=== PATIENT | male | born 1990 | race Two or more races ===

== ENCOUNTER 2019-01-22 18:29 | Emergency (ER) | payer OTHER ==
--- NOTE | 2019-01-22 19:14 | EDM.PDOC ---
ED HPI GENERAL MEDICAL PROBLEM - General Chief Complaint: Upper Extremity Injury/Pain Stated Complaint: HAND INJURY Time Seen by Provider: 01/22/19 18:54 Source of Information: Reports: Patient, RN Notes Reviewed History Limitations: Reports: No Limitations - History of Present Illness INITIAL COMMENTS - FREE TEXT/NARRATIVE: Patient is a 28-year-old male who presents to the ED for evaluation of a right hand injury. Patient states he was at work tonight, onsite at the oil [place] when he had his right hand and forearm pulled into a piece of rotational equipment and this resulted in his arm getting sort of wrapped around this rotational force. He states that he feels pain from the tips of his fingers in his right hand all the way to his elbow. He denies any pain superior to the elbow or in her shoulder. There are multiple small skin lacerations to the middle ring and pinky knuckles. He states he is not able to move his hand much at all, he notes that he has some numbness as well, and states he could not feel my touch on exam, this in a glove type fashion and terminates about [address] up his forearm. He was given 2 tablets of Advil for initial pain relief at the work site. Patient notes he is predominantly right-handed. Right Lower Arm Pain Score (Numeric/FACES): 10 - Related Data Allergies Allergy/AdvReac Type Severity Reaction Status Date / Time No Known Allergies Allergy Verified 01/22/19 18:50 Home Meds: Home Meds . [No Known Home Meds] 01/22/19 [History] Past Medical History - Past Health History Medical/Surgical History: Denies Medical/Surgical History Social & Family History - Tobacco Use Smoking Status *Q: Current Every Day Smoker Years of Tobacco use: 15 Packs/Tins Daily: 1 - Caffeine Use Caffeine Use: Reports: Coffee - Recreational Drug Use Recreational Drug Use: No Review of Systems - Review of Systems Review Of Systems: See Below Constitutional: Denies: Chills, Fever Eyes: Reports: No Symptoms Ears: Reports: No Symptoms Nose: Reports: No Symptoms Mouth/Throat: Reports: No Symptoms Respiratory: Reports: No Symptoms Cardiovascular: Reports: No Symptoms GI/Abdominal: Reports: No Symptoms Genitourinary: Reports: No Symptoms Musculoskeletal: Reports: Arm Pain (R forearm/hand), Hand Pain (R hand pain) Skin: Reports: Other (arm is visibly soiled with dark oily substance) Neurological: Reports: Numbness (R forearm, wrist, and hand) Psychiatric: Reports: No Symptoms ED EXAM, GENERAL - Physical Exam Exam: See Below Exam Limited By: No Limitations General Appearance: Alert, WD/WN, No Apparent Distress Eye Exam: Bilateral Eye: EOMI, Normal Inspection, PERRL Throat/Mouth: Normal Inspection, Normal Lips, Normal Teeth, Normal Gums, Normal Oropharynx, Normal Voice, No Airway Compromise Head: Atraumatic, Normocephalic Neck: Normal Inspection Respiratory/Chest: No Respiratory Distress, Lungs Clear, Normal Breath Sounds, No Accessory Muscle Use, Chest Non-Tender Cardiovascular: Normal Peripheral Pulses, Regular Rate, Rhythm, No Murmur Peripheral Pulses: 3+: Radial (L), Radial (R) Extremities: Normal Capillary Refill, Limited Range of Motion (of R forearm, wrist and hand. Pt cannot wiggle fingers much at all, he is not able to supinate forearm d/t pain, does not move wrist much) Neurological: Alert, Oriented, Normal Cognition, No Motor/Sensory Deficits Psychiatric: Normal Affect, Normal Mood Skin Exam: Warm, Dry, Intact, Wound/Incision (A few small lacerations to the middle, ring, and pinky knuckles of the right hand. These are at the DIP aspect of each finger. ), Other ( The hand is visibly soiled with a dark oily substance, hard to tell if color is WNL at this time. We'll have the nurse clean his arm so we can get better visualization of injuries.) Course - Vital Signs Last Recorded V/S: Last Vital Signs Temp 98.6 F 01/22/19 18:47 Pulse 77 01/22/19 18:47 Resp 18 01/22/19 18:47 BP 147/95 H 01/22/19 18:47 Pulse Ox 97 01/22/19 18:47 - Orders/Labs/Meds Orders: Active Orders 24 hr Category Date Time Status Forearm 2V Rt [CR] Stat Exams 01/22/19 19:00 Taken Hand Comp Min 3V Rt [CR] Stat Exams 01/22/19 19:00 Taken - Re-Assessments/Exams Free Text/Narrative Re-Assessment/Exam: 01/22/19 19:16 Patient resents to the ED for evaluation of a right hand injury. I did order a right hand and forearm x-rays for initial evaluation. He is not too much pain at this time, however I am worried as he is not able to move his hand much on his own, and also about his lack of sensation to the right hand and wrist. If the x-ray should note fractures, he will likely need to go to [place] for further management. 01/22/19 19:56 Patient's x-rays are done, and miraculously demonstrate no fractures or bony abnormalities in the hand or forearm studies. 01/22/19 20:25 I did call [facility] in [place], for Ortho recommendation regarding the patient' s arm injuries. Dr. Kimbrough is their hand specialist on [facility] for call. Dr. Roberts is regular orthopedist alteration tailor. Their main concern is for compartment syndrome. I will have Dr. Masters evaluate patient for possible compartment syndrome. I did not appreciate any marked swelling. 01/22/19 20:52 Dr. Masters evaluated the patient and believes there may be some sort of nerve damage that is making him lose sensation in his R hand in a glove type distribution. I did call [facility] in [place], Dr. Kimbrough suggests watchful waiting, and states that there is no surgical emergency this time. He said the patient can call his office tomorrow and schedule close follow up. He states that the patient would best benefit from keeping the arm elevated as much as possible, and try to keep it rested. He notes that injuries like this commonly spontaneously resolve by themselves, with no surgical management. He notes that this could take a week or longer to get back to normal. Departure - Departure Time of Disposition: 21:07 Disposition: Home, Self-Care 01 Condition: Fair Clinical Impression: Injury of right hand Qualifiers: Encounter type: initial encounter Qualified Code(s): S69.91XA - Unspecified injury of right wrist, hand and finger(s), initial encounter Injury of right forearm and wrist Qualifiers: Encounter type: initial encounter Qualified Code(s): S59.911A - Unspecified injury of right forearm, initial encounter - Discharge Information *PRESCRIPTION DRUG MONITORING PROGRAM REVIEWED*: No *COPY OF PRESCRIPTION DRUG MONITORING REPORT IN PATIENT SYDNI: No Instructions: Crush Injury of the Hand, [id number] Referrals: PCP,Not In Area [Primary Care Provider] - Forms: ED Department Discharge, ED Return to Work/School Form Additional Instructions: You have been evaluated in the ED for your Right hand/forearm injury. Your x-ray demonstrated no acute fracture or bony abnormality of your right hand /wrist/forearm. Please use ice as tolerated to the affected area. Please keep the arm elevated above the level of the heart as much as possible to help alleviate some of the pain. You may take Tylenol 500 mg or ibuprofen 600mg q6 hrs for pain relief. Please do so until you have a tolerable level of pain with activity. Do not exceed 4000mg tylenol, Do not exceed 3200mg ibuprofen in a 24 hour time period. Please call Ortho for follow-up and further evaluation, Dr. Kimbrough, industrial relations specialist at [facility] in [place], through the [facility] clinic was consulted on your case, he states he can call his office at [phone] tomorrow morning, and schedule a follow-up appointment with him in a day or 2. His office is located at [address] [place] [address]. He further recommended trying to rest the arm as much as possible and elevate it as much as possible. He states that the numbness you are experiencing may take a week or so to go away, but is hopeful that it will return by itself. Please return to ED if your symptoms should change or worsen. - My Orders Last 24 Hours: My Active Orders 01/22/19 19:00 Forearm 2V Rt [CR] Stat Hand Comp Min 3V Rt [CR] Stat - Assessment/Plan Last 24 Hours: My Active Orders 01/22/19 19:00 Forearm 2V Rt [CR] Stat Hand Comp Min 3V Rt [CR] Stat
--- NOTE | 2019-01-23 06:43 | CR ---
Right hand: Four views of the right hand were obtained. Comparison: No previous and exam. Joint spaces are maintained. No fracture, dislocation or other bony abnormality is seen. Impression: 1. No abnormality is appreciated on right hand exam. Diagnostic code #1 I agree with preliminary report from [facility], finalized on 01/22/19, 8:49 PM Central Time
--- NOTE | 2019-01-23 06:43 | CR ---
Right forearm: Two views of the right forearm were obtained. Comparison: No previous forearm study. No fracture or other bony abnormality is seen. Impression: 1. No abnormality is identified on right forearm study. Diagnostic code #1
== END 2019-01-22 21:27 | disposition home or self-care (01) ==
LOC: JD.ED 18:29
DX: S61.212A Laceration without foreign body of right middle finger without damage to nail, initial encounter (principal); S61.214A Laceration without foreign body of right ring finger without damage to nail, initial encounter; S61.411A Laceration without foreign body of right hand, initial encounter; S69.91XA Unspecified injury of right wrist, hand and finger(s), initial encounter; S59.911A Unspecified injury of right forearm, initial encounter; F17.210 Nicotine dependence, cigarettes, uncomplicated; W23.0XXA Caught, crushed, jammed, or pinched between moving objects, initial encounter; Y92.89 Other specified places as the place of occurrence of the external cause; Y99.0 Civilian activity done for income or pay
CPT/HCPCS: 73090-26-RT; 73090-RT; 73130-26-RT; 73130-RT; 99283-25

== ENCOUNTER 2021-12-06 13:05 | Emergency (ER) | payer OTHER ==
[2021-12-06] MEDS ORDERED: Ketorolac 60 MG/2 ML SDV IM ONE (17:12)
== END 2021-12-06 19:25 | disposition home or self-care (01) ==
LOC: JD.ED 13:05
DX: M79.2 Neuralgia and neuritis, unspecified (principal); Z86.16 Personal history of COVID-19
CPT/HCPCS: 70450; 96372; 99283; J1885

== ENCOUNTER 2022-03-19 21:02 | Emergency (ER) | payer OTHER ==
[2022-03-19 23:25] LABS: ESTIMATED GFR 91 mL/min (>60)
[2022-03-20] MEDS ORDERED: Iopamidol 612 MG/ML 100 ML Bottle IVPUSH ONE (00:22)
[2022-03-20] MEDS ORDERED: Doxycycline Monohydrate 100 MG Cap PO ONE (01:06)
[2022-03-20] MEDS ORDERED: Ketorolac 30 MG/ML SDV IVPUSH ONE (01:07)
== END 2022-03-20 01:30 | disposition home or self-care (01) ==
LOC: JD.ED 21:02
DX: R10.32 Left lower quadrant pain (principal); Z86.16 Personal history of COVID-19
CPT/HCPCS: 36415; 74177; 80053; 81003; 85025; 96374; 99284; A9270; J1885; Q9967

== ENCOUNTER 2022-04-12 23:35 | Emergency (ER) | payer OTHER ==
[2022-04-13] MEDS ORDERED: HYDROmorphone 1 MG/ML Syringe IVPUSH ONE (00:08)
[2022-04-13] MEDS ORDERED: Ondansetron 4 MG/2 ML SDV IVPUSH ONE (00:08)
[2022-04-13] MEDS ORDERED: Sodium Chloride 0.9% 1,000 ML IV SCH (00:15)
[2022-04-13] MEDS ORDERED: Sodium Chloride 0.9% 10 ML Syringe FLUSH ONE (00:43)
[2022-04-13] MEDS ORDERED: Iopamidol 612 MG/ML 100 ML Bottle IVPUSH ONE (00:43)
== END 2022-04-13 01:25 | disposition home or self-care (01) ==
LOC: JD.ED 23:35
DX: R10.32 Left lower quadrant pain (principal); Z87.891 Personal history of nicotine dependence
CPT/HCPCS: 36415; 74177; 80053; 85007; 85027; 96361; 96374; 96375; 99284; J1170; J2405; J3490; J7030; Q9967

== ENCOUNTER 2022-04-22 10:09 | Day surgery (SDC) | payer OTHER ==
[~2022-04-22 10:09] MED LIST: Lactated Ringers 1,000 ML IV SCH; Lidocaine 1% 6 ML ONE; Lidocaine 1%/Sod Bicarbonate in NS 8.4% 1 ML Syringe IDERM PRN; Propofol 200 MG/20 ML SDV ONE; Sodium Chloride 0.9% 10 ML Syringe FLUSH PRN; Sodium Chloride 0.9% 10 ML Syringe FLUSH SCH
[2022-04-22] MEDS ORDERED: fentaNYL 100 MCG/2 ML SDV ONE (10:10)
[2022-04-22] MEDS ORDERED: Rocuronium 50 MG/5 ML Vial ONE (10:10)
[2022-04-22] MEDS ORDERED: Ondansetron 4 MG/2 ML SDV ONE (10:10)
[2022-04-22] MEDS ORDERED: Lidocaine 1% 30 ML SDV ONE (10:24)
[2022-04-22] MEDS ORDERED: Bupivacaine 0.5%/EPINEPHrine 1:200,000 50 ML MDV ONE (10:24)
[2022-04-22] MEDS ORDERED: Acetaminophen 325 MG Tab PO SCH (10:30)
[2022-04-22] MEDS ORDERED: Gabapentin 300 MG Cap PO SCH (10:30)
[2022-04-22] MEDS ORDERED: ceFAZolin 2 GM Vial ONE (12:01)
[2022-04-22] MEDS ORDERED: Ketorolac 15 MG/ML SDV ONE (12:56)
[2022-04-22] MEDS ORDERED: fentaNYL 100 MCG/2 ML SDV IVPUSH PRN (13:40)
[2022-04-22] MEDS ORDERED: Ondansetron 4 MG/2 ML SDV IVPUSH PRN (13:40)
[2022-04-22] MEDS ORDERED: Acetaminophen/oxyCODONE 325-5 MG Tab PO ONE (13:46)
== END 2022-04-22 14:51 | disposition home or self-care (01) ==
LOC: JD.SDS 10:09
PROVIDERS: ATTEND Surgery
DX: K40.90 Unilateral inguinal hernia, without obstruction or gangrene, not specified as recurrent (principal); D17.6 Benign lipomatous neoplasm of spermatic cord; M54.9 Dorsalgia, unspecified; G89.29 Other chronic pain; Z79.899 Other long term (current) drug therapy; Z98.890 Other specified postprocedural states; Z86.16 Personal history of COVID-19; Z87.891 Personal history of nicotine dependence
CPT/HCPCS: 49650; 87641; A9270; C1727; C1781; J0690; J1885; J2405; J2704; J3010; J3490; J7120

== ENCOUNTER 2022-05-29 21:07 | Emergency (ER) | payer OTHER ==
[2022-05-29] MEDS ORDERED: HYDROmorphone 0.5 MG/0.5 ML Syringe IVPUSH ONE (22:05)
[2022-05-29] MEDS ORDERED: Sodium Chloride 0.9% 10 ML Syringe FLUSH PRN (22:05)
[2022-05-29] MEDS ORDERED: Sodium Chloride 0.9% 10 ML Syringe FLUSH ONE (22:08)
[2022-05-29] MEDS ORDERED: Iopamidol 612 MG/ML 100 ML Bottle IVPUSH ONE (22:08)
[2022-05-29 22:50] LABS: ESTIMATED GFR 91 mL/min (>60)
[2022-05-29] MEDS ORDERED: Polyethylene Glycol 3350 Powder 17 GM Packet PO ONE (23:06)
== END 2022-05-29 23:15 | disposition home or self-care (01) ==
LOC: JD.ED 21:07
DX: K59.00 Constipation, unspecified (principal); Z86.16 Personal history of COVID-19
CPT/HCPCS: 36415; 74177; 80053; 85025; 86140; 96374; 99284; J1170; J3490; Q9967; 99283

== ENCOUNTER 2022-08-03 20:48 | Emergency (ER) | payer OTHER ==
[2022-08-03] MEDS ORDERED: Sodium Chloride 0.9% 10 ML Syringe FLUSH PRN (21:51)
[2022-08-03] MEDS ORDERED: Alum Hydrox/Mag Hydrox/Simeth 30 ML, Lidocaine 2% 15 ML PO ONE ×2 (21:51)
[2022-08-03 22:35] LABS: ESTIMATED GFR 116 mL/min (>60)
[2022-08-03] MEDS ORDERED: Sucralfate Suspension 1 GM/10 ML Cup PO ONE (22:40)
[2022-08-04] MEDS ORDERED: Famotidine 20 MG/2 ML SDV IVPUSH STA (00:26)
[2022-08-04] MEDS ORDERED: Famotidine 20 MG Tab PO STA (00:27)
== END 2022-08-04 00:50 | disposition home or self-care (01) ==
LOC: JD.ED 20:48
DX: K21.9 Gastro-esophageal reflux disease without esophagitis (principal); Z86.16 Personal history of COVID-19
CPT/HCPCS: 36415; 76705; 80053; 85025; 86140; 99284; A9270

== ENCOUNTER 2022-08-14 11:35 | Emergency (ER) | payer OTHER ==
[2022-08-14] MEDS ORDERED: Sodium Chloride 0.9% 1,000 ML IV ONE (12:06)
[2022-08-14] MEDS ORDERED: Meclizine 25 MG Tab PO ONE (12:06)
[2022-08-14] MEDS ORDERED: Ketorolac 30 MG/ML SDV IVPUSH ONE (12:06)
[2022-08-14] MEDS ORDERED: Sodium Chloride 0.9% 10 ML Syringe FLUSH PRN (12:06)
[2022-08-14 12:44] LABS: BASOPHILS ABSOLUTE AUTO 0.05 K/mm3 (0.01-0.08); BASOPHILS PERCENT AUTO 0.7 % (0.1-1.2); EOSINOPHILS ABSOLUTE AUTO 0.34 K/mm3 (0.04-0.54); EOSINOPHILS PERCENT AUTO 4.5 (0.8-7.0); HEMATOCRIT 42.5 % (40.1-51.0); HEMOGLOBIN 14.4 gm/dl (13.7-17.5); LYMPHOCYTES ABSOLUTE AUTO 2.95 K/mm3 (1.32-3.57); LYMPHOCYTES PERCENT AUTO 39.4 % (21.8-53.1); MEAN CORPUSCULAR HEMOGLOBIN 30.6 pg (25.7-32.2); MEAN CORPUSCULAR HGB CONC 33.9 g/dl (32.2-35.5); MEAN CORPUSCULAR VOLUME 90.4 fl (79.0-92.2); MEAN PLATELET VOLUME 9.1 fl (9.4-12.3); MONOCYTES ABSOLUTE AUTO 0.65 K/mm3 (0.30-0.82); MONOCYTES PERCENT AUTO 8.7 % (5.3-12.2); NEUTROPHILS ABSOLUTE AUTO 3.49 K/mm3 (1.78-5.38); NEUTROPHILS PERCENT AUTO 46.7 % (34.0-67.9); PLATELET COUNT,PLT 331 K/mm3 (163-337); WHITE BLOOD CELL COUNT,WBC 7.48 K/mm3 (4.23-9.07)
[2022-08-14 13:05] LABS: A/G RATIO 1.1 (1-2); ALANINE AMINOTRANSFERASE,ALT 24 U/L (16-63); ALBUMIN 3.7 g/dl (3.4-5.0); ALKALINE PHOSPHATASE 74 U/L (46-116); ASPARTATE AMNIOTRANSFERASE,AST 23 U/L (15-37); BILIRUBIN TOTAL 0.4 mg/dL (0.2-1.0); BLOOD UREA NITROGEN,BUN 8 mg/dL (7-18); BUN/CREATININE RATIO 8.9 (14-18); C-REACTIVE PROTEIN <0.2 mg/dL (<1.0); CALCIUM 8.8 mg/dL (8.5-10.1); CARBON DIOXIDE,CO2 26 mEq/L (21-32); CHLORIDE,CL 105 mEq/L (98-107); CREATININE 0.9 mg/dL (0.7-1.3); ESTIMATED GFR 116 mL/min (>60); GLUCOSE RANDOM 81 mg/dL (70-99); SODIUM,NA 139 mEq/L (136-145)
== END 2022-08-14 13:49 | disposition home or self-care (01) ==
LOC: JD.ED 11:35
DX: R42 Dizziness and giddiness (principal); R19.7 Diarrhea, unspecified; M54.2 Cervicalgia; F17.210 Nicotine dependence, cigarettes, uncomplicated; Z86.16 Personal history of COVID-19
CPT/HCPCS: 36415; 80053; 85025; 86140; 96361; 96374; 99284; A9270; J1885; J3490; J7030; 99283

== ENCOUNTER 2022-09-28 21:47 | Emergency (ER) | payer OTHER | END 2022-09-28 22:21 | disposition home or self-care (01) | LOC: JD.ED 21:47 | DX: Z48.01 Encounter for change or removal of surgical wound dressing (principal) | CPT/HCPCS: 99282 ==